=== PATIENT | male | born 1975 | race Caucasian/White ===

== ENCOUNTER → 2016-08-14 | Outpatient (CLI) | payer BC ==
[~2016-08-14] MED LIST: ACET325T96 PO; ADEK PO; ADVIN50/60 INH; AMT24 PO; CETI10TA84 PO; DORN1SOL INH; HYPERTONIC SALINE INH; IBUP-1050 PO; NXM/40 PO; OMAL150S; PANC6000 PO; PEGSOL6 PO; PEGSOL8 PO; SNG10 PO; TOBR1NEB INH; VEST; VNTHFA/IN INH; ZTHM250 PO; [UNRECOGNIZED DRUG - CODE] PO; [UNRECOGNIZED DRUG - OTHER] PO; [UNRECOGNIZED DRUG - SUPPLY] TOP
[2016-08-14 18:57] LABS: BASO % 0.4 %; BASO ABS # 0.03 K/uL (0-0.2); COMPLETE YES; EOS % 4.2 %; HEMATOCRIT 41.2 % (42-52); IG% 0.1 %; LYMPH % 23.3 %; LYMPH ABS # 1.88 K/uL (1.2-3.4); MEAN CELL VOLUME 82.6 fL (80-100); MEAN CORPUSCULAR HEMOGLOBIN 29.5 pg (25-34); MEAN CORPUSCULAR HGB CONC 35.7 g/dl (32-36); MEAN PLATELET VOLUME 10.4 fL (7.4-10.4); MONO % 9.4 %; NEUT % 62.6 %; PLATELET COUNT 362 K/uL (130-400); RED BLOOD COUNT 4.99 M/uL (4.7-6.1); URINE APPEARANCE CLEAR (CLEAR); URINE BILIRUBIN NEG (NEG); URINE COLOR YELLOW; URINE NITRITE NEG (NEG); URINE PH 6.5 (4.5-7.5); URINE SPECIFIC GRAVITY 1.009 (1.000-1.030); UROBILINOGEN NEG (NEG); WHITE BLOOD COUNT 8.07 K/uL (4.8-10.8)
[2016-08-14 18:58] LABS: MANUAL MICROSCOPIC REQUIRED? NO; REVIEW REQ? NO
[2016-08-14 19:09] LABS: PARTIAL THROMBOPLASTIN RATIO 1.1; PROTHROMBIN TIME (PATIENT) 10.7 SECONDS (9.0-12.0)
[2016-08-14 19:18] LABS: ALT/SGPT 16 U/L (12-78); BLOOD UREA NITROGEN 12 mg/dl (7-18); C-REACTIVE PROTEIN 1.55 mg/dl (0-0.29); CALCIUM 8.9 mg/dl (8.5-10.1); CARBON DIOXIDE 25 mmol/L (21-32); CHLORIDE 105 mmol/L (98-107); CHOLESTEROL 113 mg/dl (0-200); CREATININE 0.86 mg/dl (0.60-1.40); GLUCOSE 69 mg/dl (70-99); POTASSIUM 3.9 mmol/L (3.5-5.1); SODIUM 140 mmol/L (136-145); TRIGLYCERIDES 115 mg/dl (0-150); VERY LOW DENSITY LIPOPROT CALC 23 mg/dl
[2016-08-14 19:23] LABS: ALKALINE PHOSPHATASE 77 U/L (45-117); AST/SGOT 11 U/L (15-37); CHOLESTEROL/HDL RATIO 2.9; FERRITIN 29.5 ng/ml (8.0-388.0); HDL CHOLESTEROL 39 mg/dl; LDL CHOLESTEROL CALCULATED 51 mg/dl; PHOSPHORUS 2.9 mg/dl (2.5-4.9); TOTAL IRON BINDING CAPACITY 404 mcg/dl (250-450)
[2016-08-15 06:04] LABS: ESTIMATED AVERAGE GLUCOSE 114 mg/dl; HA1C FLAG Normal (Normal)
[2016-08-27 18:27] LABS: ASPERGILLUS FLAVUS Negative (Negative); ASPERGILLUS FUMIGATUS Negative (Negative); ASPERGILLUS NIGER Negative (Negative); IMMUNOGLOBULIN E TC 24620E 2192 KU/L (<115); VIT E ALPHA-TOCOPHEROL 8.7 mg/L (5.7-19.9); VIT E BETA&GAMMA-TOCOPHEROL <1.0 mg/L (<=4.3); VITAMIN A** TC 921X 45 mcg/dL (38-98)
== END | disposition home or self-care (01) ==
LOC: C.LAB 15:52
PROVIDERS: ATTEND Internal Medicine Pulmonary Disease
DX: E84.9 Cystic fibrosis, unspecified (principal); K86.89 Other specified diseases of pancreas

== ENCOUNTER → 2016-08-19 | Outpatient (CLI) | payer BC | END | disposition home or self-care (01) | LOC: C.LAB 09:03 | PROVIDERS: ATTEND Internal Medicine Pulmonary Disease | DX: E84.0 Cystic fibrosis with pulmonary manifestations (principal); K86.89 Other specified diseases of pancreas ==

== ENCOUNTER → 2016-08-31 | Outpatient (CLI) | payer BC ==
--- NOTE | 2016-08-31 15:57 | DIAGNOSTIC IMAGING REPORT ---
CT SCAN OF THE ABDOMEN AND PELVIS WITHOUT IV CONTRAST CLINICAL HISTORY: Cystic fibrosis. Meconium obstruction. COMPARISON STUDY: Abdominal CT dated 04/26/2015. TECHNIQUE: CT scan of the abdomen and pelvis is performed from the lung bases to the proximal femora. Images are reviewed in the axial, sagittal, and coronal planes. IV contrast was not administered for this examination as per the referring clinician. Note that the examination is suboptimal without oral and IV contrast. Automated dose control exposure was utilized. CT DOSE: 553.83 mGy.cm FINDINGS: Lung bases: The heart is normal in size and without pericardial effusion. The lungs appear hyperinflated, and there is patchy nodularity with mucous plugging seen at the right lung base. No pleural effusion is identified. Liver: The unenhanced liver is normal in size, contour, and attenuation. There is no intrahepatic biliary ductal dilatation. Gallbladder: The gallbladder is contracted. Small calcified gallstones are identified. Spleen: Normal in size and attenuation. Pancreas: There is complete fatty replacement of the pancreas. Adrenal glands: Unremarkable. Kidneys: The unenhanced kidneys are normal in size and without hydronephrosis. There is a single nonobstructing right renal calculus and 3 nonobstructing left renal calculi. These measure up to 2 mm. There is no evidence of contour deforming renal mass lesion. Abdominal vasculature: The abdominal aorta is normal in course and caliber. Bowel: The small bowel and colon are normal in course and caliber. There is moderate colonic fecal retention. The appendix is surgically absent. Peritoneum: There is no intraperitoneal free air or abdominal ascites. There is a small fat-containing umbilical hernia. Lymphadenopathy: None. Pelvic viscera: The bladder, prostate, and seminal vesicles are normal as visualized. Skeletal structures: No lytic or blastic lesions are seen. IMPRESSION: 1. There are no acute infectious or inflammatory findings in the abdomen or pelvis. 2. There is near complete fatty atrophy of the pancreas, consistent with the reported history of cystic fibrosis. 3. Cholelithiasis. 4. There are small bilateral nonobstructing renal calculi. 5. Moderate constipation. 6. Nodular opacities are present at the right lung base. This may reflect an infectious/inflammatory pneumonitis. See report of chest CT performed concurrently for detailed intrathoracic findings. Electronically signed by: Desean Mcintosh M.D. 08/31/2016 3:56 PM Dictated Date/Time: 08/31/2016 3:50 PM
--- NOTE | 2016-08-31 16:01 | DIAGNOSTIC IMAGING REPORT ---
CHEST CT WITHOUT CONTRAST CT DOSE: HISTORY: CYSTIC FIBROSIS TECHNIQUE: Multiaxial CT images of the chest were performed without contrast. COMPARISON: Chest CT 09/15/2015. FINDINGS: The central airways are essentially patent. There is mild bronchiectasis. There are few small biapical bulla within largest on the right measuring 2.5 cm. Multiple scattered opacified distal bronchi with scattered lobular and irregular airspace opacities. This includes an irregular cavitary focus within the right lower lobe on image 182 which measures 2 cm. This is similar to the prior study. There are few new irregular airspace opacities within the right lower lobe. However, the overall appearance of the chest demonstrates improvement in the airspace opacities. The tree-in-bud nodular opacities have also improved. No pleural effusions. No pneumothorax. Mild diffuse bronchial wall thickening. No mediastinal lymphadenopathy. Normal caliber thoracic aorta. The heart is normal in size. Complete fatty replacement of the pancreas. Small gallstones. IMPRESSION: 1. Mild bronchiectasis with multiple scattered opacified distal bronchi. There are a few scattered lobular and irregular airspace opacities with tree-in-bud nodular opacities. These findings are consistent with the patient's history of cystic fibrosis. Overall, the airspace opacities have slightly improved in the interval. 2. Persistent 2 cm cavitary focus within the right lower lobe. Continued follow-up is recommended to ensure stability. Electronically signed by: Wilian Lozano M.D. 08/31/2016 3:59 PM Dictated Date/Time: 08/31/2016 3:46 PM
== END | disposition home or self-care (01) ==
LOC: C.CTS 15:20
PROVIDERS: ATTEND Internal Medicine Pulmonary Disease
DX: E84.0 Cystic fibrosis with pulmonary manifestations (principal); E00-E89 Endocrine, nutritional and metabolic diseases; K86.89 Other specified diseases of pancreas; M35.1 Other overlap syndromes; M06.9 Rheumatoid arthritis, unspecified; K59.00 Constipation, unspecified

== ENCOUNTER → 2017-04-17 | Day surgery (SDC) | payer BC ==
[2017-04-02 14:13] VITALS: BMI 22.0
[~2017-04-17] VITALS: Ht 180.3 cm; Wt 72.7 kg
[~2017-04-17] MED LIST changes: +LIDOCAINE HCL 2% 2 ML VIAL (20MG/ML) ONE; -PEGSOL8 PO; +PROPOFOL IV EMULSION 10 MG/ML 20 ML VIAL IV ONE; -VEST; -[UNRECOGNIZED DRUG - OTHER] PO
[2017-04-17 11:17] VITALS: Ht 180.3 cm; Wt 72.7 kg
--- NOTE | 2017-04-17 11:20 | Endo History and Physical ---
History & Physical Date of Service: Apr 17, 2017. Chief Complaint: History of colon polyps Referring Physician: Dr. Wall History of Present Illness 41 yo CM who presents for colonoscopy secondary to history of colon polyps. Past Medical History Asthma, Reflux, Other Past Surgical History Hx Cardiac Surgery: No Hx Internal Defibrillator: No Hx Pacemaker: No Hx Abdominal Surgery: Yes (APPY, INGUINAL HERNIA REPAIR WITH MESH) Hx of Implantable Prosthesis: No Hx Post-Op Nausea and Vomiting: No Hx Cancer Surgery: No Hx Thoracic Surgery: Yes (BRONCHOSCOPY) Hx Orthopedic: No Hx Urinary Tract Surgery: No Family History None Social History Smoking Status: Never Smoker Hx Substance Use: No Hx Alcohol Use: Yes (1 DRINK/WEEK) Allergies Coded Allergies: No Known Allergies (Verified , 04/02/17) Current Medications Reported Home Medications Medications Dose Route/Sig Max Daily Dose Days Date Category Dose Instructions [Vibrating Vest] TOP UD PRN 04/02/17 Reported Ventolin Hfa (Albuterol) 200 Puffs/03358 Mcg Aers 2-4 Puffs INH Q6H PRN 04/02/17 Reported Orkambi 200-125 mg (Lumacaftor-Ivacaftor) 1 Tab Tab 2 Tabs PO BID 04/02/17 Reported Golytely (Peg 1118-Tur-Ibm Bicarb-Sod Ch) 1 Janell Janell 1 Dose PO UD PRN 04/02/17 Reported Amitiza (Lubiprostone) 24 Mcg Cap 24 Mcg PO QAM 04/02/17 Reported Xolair (Omalizumab) 150 Mg Janell 04/06/15 Reported INJECT 375MG SUBQ EVERY 2 WEEKS Advair Diskus 500/50 60 Dose (Fluticasone Prop/Salmeterol) 1 Ea Aerp 1 Puffs INH BID 04/06/15 Reported Advil (Ibuprofen) 200 Mg Tab 200 Mg PO Q4 PRN 03/21/15 Reported Tylenol (Acetaminophen) 325 Mg Tab 325 Mg PO DAILY PRN 03/21/15 Reported [Hypertonic Saline] INH BID 12/21/14 Reported USE IN NEB TREATMENT DIRECTED Pulmozyme (Dornase Praveen) 1 Mg/Ml Janell 1 Mg INH QAM 12/21/14 Reported Tobramycin 300 Mg/5 Ml Neb 300 Mg INH BID 12/21/14 Reported DIRECTED ON 28 DAYS OFF 28 DAYS [Adek] 1 Tab PO BID 12/21/14 Reported Montelukast Sodium (Montelukast Sod) 10 Mg Tab 10 Mg PO QAM 12/21/14 Reported Zyrtec (Cetirizine HCl) 10 Mg Tab 10 Mg PO QAM 12/21/14 Reported Azithromycin 250 Mg Tab 250 Mg PO QAM 12/21/14 Reported Nexium (Esomeprazole Magnesium) 40 Mg Capcr 40 Mg PO QAM 12/21/14 Reported Creon (Pancrelipase (Lipase-Protease-) 1 Cap Cap 8 Cap PO TIDM 12/21/14 Reported 4 CAPS WITH SNACK Vital Signs Weight (Kilograms): 72.73 Height (Feet): 5 Height (Inches): 11 Date Time Temp Pulse Resp B/P (MAP) Pulse Ox O2 Delivery O2 Flow Rate FiO2 04/17/17 11:16 36.7 78 18 141/74 (96) 97 Room Air Physical Exam General Appearance: WD/WN, no apparent distress Respiratory/Chest: Auscultation: breath sounds normal Cardiovascular: Heart Auscultation: RRR Abdomen: Bowel Sounds: normal Inspection & Palpation: soft, non-distended, no tenderness, guarding & rebound Assessment and Plan Assessment: 41 yo CM who presents for colonoscopy secondary to history of colon polyps. Plan: Proceed with colonoscopy.
--- NOTE | 2017-04-17 11:58 | Discharge Instructions ---
Endoscopy Patient Instructions Date / Procedure(s) Performed Apr 17, 2017. Colonoscopy Allergy Information Coded Allergies: No Known Allergies (Verified , 04/02/17) Discharge Date / Findings Apr 17, 2017. Colon polyps Internal hemorrhoids Medication Instructions OK to resume all medications today as prescribed Reported Home Medications Medications Dose Route/Sig Max Daily Dose Days Date Category Dose Instructions [Vibrating Vest] TOP UD PRN 04/02/17 Reported Ventolin Hfa (Albuterol) 200 Puffs/98890 Mcg Aers 2-4 Puffs INH Q6H PRN 04/02/17 Reported Orkambi 200-125 mg (Lumacaftor-Ivacaftor) 1 Tab Tab 2 Tabs PO BID 04/02/17 Reported Golytely (Peg 3033-Ovg-Ojc Bicarb-Sod Ch) 1 Janell Janell 1 Dose PO UD PRN 04/02/17 Reported Amitiza (Lubiprostone) 24 Mcg Cap 24 Mcg PO QAM 04/02/17 Reported Xolair (Omalizumab) 150 Mg Janell 04/06/15 Reported INJECT 375MG SUBQ EVERY 2 WEEKS Advair Diskus 500/50 60 Dose (Fluticasone Prop/Salmeterol) 1 Ea Aerp 1 Puffs INH BID 04/06/15 Reported Advil (Ibuprofen) 200 Mg Tab 200 Mg PO Q4 PRN 03/21/15 Reported Tylenol (Acetaminophen) 325 Mg Tab 325 Mg PO DAILY PRN 03/21/15 Reported [Hypertonic Saline] INH BID 12/21/14 Reported USE IN NEB TREATMENT DIRECTED Pulmozyme (Dornase Praveen) 1 Mg/Ml Janell 1 Mg INH QAM 12/21/14 Reported Tobramycin 300 Mg/5 Ml Neb 300 Mg INH BID 12/21/14 Reported DIRECTED ON 28 DAYS OFF 28 DAYS [Adek] 1 Tab PO BID 12/21/14 Reported Montelukast Sodium (Montelukast Sod) 10 Mg Tab 10 Mg PO QAM 12/21/14 Reported Zyrtec (Cetirizine HCl) 10 Mg Tab 10 Mg PO QAM 12/21/14 Reported Azithromycin 250 Mg Tab 250 Mg PO QAM 12/21/14 Reported Nexium (Esomeprazole Magnesium) 40 Mg Capcr 40 Mg PO QAM 12/21/14 Reported Creon (Pancrelipase (Lipase-Protease-) 1 Cap Cap 8 Cap PO TIDM 12/21/14 Reported 4 CAPS WITH SNACK Provider Instructions Activity Restrictions - No exercising or heavy lifting for 24 hours. - Do not drink alcohol the day of the procedure. - Do not drive a car or operate machinery until the day after the procedure. - Do not make any important decisions or sign important papers in 24 hours after the procedure. Following Day: - Return to full activity which may include returning to work/school. Diet Start your diet with liquids and light foods (jello, soup, juice, toast). Then eat your usual diet if not nauseated. Treatment For Common After Affects For mild abdominal pain, bloating, or excessive gas: - Rest - Eat lightly - Lie on right side Follow-Up Information Follow-up with DR GALLAGHER as scheduled Anesthesia Information What You Should Know You have had a procedure that required some medicine to reduce anxiety and discomfort. This treatment is called moderate sedation. After receiving the treatment, you may be sleepy, but you will be able to breathe on your own. The effects of the treatment may last for several hours. Follow these instructions along with Activity/Diet recommendations noted above: * Do NOT do anything where dizziness or clumsiness would be dangerous. * Rest quietly at home today, then you can be up and about tomorrow. * Have a responsible person stay with you the rest of today. * You may have had an I.V. today. If so, you may take the dressing off later today. Recommendations Call your doctor if: * Trouble breathing * Continuous vomiting for more than 24 hours * Temperature above 101 degrees * Severe abdominal pain or bloating * Pain not relieved by pain medicine ordered * There is increased drainage or redness from any incision * A large amount of rectal bleeding greater than 2-3 tablespoons. (If you had a polyp/s removed or have hemorrhoids, a small amount of blood - from the rectum is to be expected.) * You have any unanswered questions or concerns. IN THE EVENT OF A SERIOUS EMERGENCY, GO TO THE NEAREST EMERGENCY ROOM Your discharge instructions were prepared by provider Aleks Cox. Patient Instructions Signature Page Adryan Wells Patient (or Guardian) Signature/Date: I have read and understand the instructions given to me by my caregivers. Caregiver/RN/Doctor Signature/Date: The above-named patient and/or guardian has received patient instructions on this date. + Original Patient Signature Page (only) stays with chart. Please make copy for patient.
--- NOTE | 2017-04-17 12:07 | GI REPORT ---
Procedure Date: 04/17/2017 11:09 AM Procedure: Colonoscopy Indications: High risk colon cancer surveillance: Personal history of colonic polyps, Last colonoscopy: December 2014 Medicines: Monitored Anesthesia Care Complications: No immediate complications. Estimated Blood Loss: Estimated blood loss: none. Procedure: Pre-Anesthesia Assessment: - Prior to the procedure, a History and Physical was performed, and patient medications and allergies were reviewed. The patient's tolerance of previous anesthesia was also reviewed. The risks and benefits of the procedure and the sedation options and risks were discussed with the patient. All questions were answered, and informed consent was obtained. Prior Anticoagulants: The patient has taken no previous anticoagulant or antiplatelet agents. ASA Grade Assessment: III - A patient with severe systemic disease. After reviewing the risks and benefits, the patient was deemed in satisfactory condition to undergo the procedure. After I obtained informed consent, the scope was passed under direct vision. Throughout the procedure, the patient's blood pressure, pulse, and oxygen saturations were monitored continuously. The scope was introduced through the anus and advanced to the terminal ileum. The colonoscopy was performed without difficulty. The patient tolerated the procedure well. The quality of the bowel preparation was good. The terminal ileum, ileocecal valve, appendiceal orifice, and rectum were photographed. Findings: Two sessile polyps were found in the sigmoid colon and in the descending colon. The polyps were 5 to 8 mm in size. These polyps were removed with a hot snare. Resection and retrieval were complete. Non-bleeding internal hemorrhoids were found during retroflexion. The hemorrhoids were small. Impression: - Two 5 to 8 mm polyps in the sigmoid colon and in the descending colon, removed with a hot snare. Resected and retrieved. - Non-bleeding internal hemorrhoids. Recommendation: - Resume previous diet. - Continue present medications. - Repeat colonoscopy for surveillance based on pathology results. - Return to primary care physician as previously scheduled. Aleks Cox, 04/17/2017 12:07:08 PM This report has been signed electronically. Note Initiated On: 04/17/2017 11:09 AM I attest to the content of the Intraoperative Record and orders documented therein, exceptions below
--- NOTE | 2017-04-17 12:14 | Anesthesiology Progress Note ---
Anesthesia Post Op Note Date & Time Apr 17, 2017 at 12:13 Vital Signs Pain Intensity: 2 Vital Signs Past 12 Hours Date Time Temp Pulse Resp B/P (MAP) Pulse Ox O2 Delivery O2 Flow Rate FiO2 04/17/17 12:10 72 16 121/76 (91) 97 Room Air 04/17/17 12:00 77 16 115/65 (82) 97 Room Air 04/17/17 11:16 36.7 78 18 141/74 (96) 97 Room Air Notes Mental Status: alert / awake / arousable, participated in evaluation Pt Amnestic to Procedure: Yes Nausea / Vomiting: adequately controlled Pain: adequately controlled Airway Patency, RR, SpO2: stable & adequate BP & HR: stable & adequate Hydration State: stable & adequate Anesthetic Complications: no major complications apparent
[2017-04-17 12:20] VITALS: BP 117/76; PULSE 64; O2SAT 96
== END | disposition home or self-care (01) ==
LOC: C.GI 10:53
PROVIDERS: ATTEND Internal Medicine
DX: Z12.11 Encounter for screening for malignant neoplasm of colon (principal); D12.4 Benign neoplasm of descending colon; D12.5 Benign neoplasm of sigmoid colon; K64.8 Other hemorrhoids; Z86.010 Personal history of colon polyps; K21.9 Gastro-esophageal reflux disease without esophagitis; J45.909 Unspecified asthma, uncomplicated; Z79.899 Other long term (current) drug therapy

== ENCOUNTER → 2017-08-14 | Outpatient (CLI) | payer BC ==
[~2017-08-14] MED LIST changes: +AZIT-57 PO; -LIDOCAINE HCL 2% 2 ML VIAL (20MG/ML) ONE; -PROPOFOL IV EMULSION 10 MG/ML 20 ML VIAL IV ONE; -ZTHM250 PO
[2017-08-14 16:31] LABS: BASO % 0.3 %; BASO ABS # 0.04 K/uL (0-0.2); EOS % 2.6 %; EOS ABS # 0.39 K/uL (0-0.5); HEMATOCRIT 45.6 % (42-52); HEMOGLOBIN 15.8 g/dL (14.0-18.0); IG# 0.03 K/uL (0.00-0.02); LYMPH % 13.4 %; LYMPH ABS # 2.03 K/uL (1.2-3.4); MEAN CELL VOLUME 85.4 fL (80-100); MEAN CORPUSCULAR HEMOGLOBIN 29.6 pg (25-34); MEAN CORPUSCULAR HGB CONC 34.6 g/dl (32-36); MEAN PLATELET VOLUME 10.2 fL (7.4-10.4); MONO % 8.3 %; MONO ABS # 1.25 K/uL (0.11-0.59); NEUT % 75.2 %; NEUT ABS # 11.37 K/uL (1.4-6.5); NUCLEATED RED BLOOD CELL ABS 0.02 K/uL (0-0); PLATELET COUNT 385 K/uL (130-400); RED CELL DISTRIBUTION WIDTH CV 13.3 % (11.5-14.5); RED CELL DISTRIBUTION WIDTH SD 41.2 fL (36.4-46.3); WHITE BLOOD COUNT 15.11 K/uL (4.8-10.8)
[2017-08-14 16:40] LABS: PTT PATIENT 27.6 SECONDS (21.0-31.0)
[2017-08-14 16:57] LABS: ALBUMIN 4.2 gm/dl (3.4-5.0); ALT/SGPT 20 U/L (12-78); AST/SGOT 14 U/L (15-37); BLOOD UREA NITROGEN 13 mg/dl (7-18); CALCIUM 9.3 mg/dl (8.5-10.1); CARBON DIOXIDE 29 mmol/L (21-32); CREATININE 0.87 mg/dl (0.60-1.40); GLUCOSE 75 mg/dl (70-99); PHOSPHORUS 3.1 mg/dl (2.5-4.9); POTASSIUM 3.9 mmol/L (3.5-5.1); SODIUM 134 mmol/L (136-145)
[2017-08-14 17:00] LABS: ALKALINE PHOSPHATASE 94 U/L (45-117); TOTAL PROTEIN 9.3 gm/dl (6.4-8.2)
[2017-08-15 06:05] LABS: HEMOGLOBIN A1C 5.7 % (4.5-5.6)
== END | disposition home or self-care (01) ==
LOC: C.LAB 15:28
PROVIDERS: ATTEND Internal Medicine Pulmonary Disease
DX: E84.0 Cystic fibrosis with pulmonary manifestations (principal); K86.89 Other specified diseases of pancreas

== ENCOUNTER → 2017-08-15 | Outpatient (CLI) | payer BC ==
--- NOTE | 2017-08-15 16:04 | DIAGNOSTIC IMAGING REPORT ---
CHEST 2 VIEWS ROUTINE HISTORY: CYSITIC FIBROSIS, PANCREATIC INSUFFICIENCY COMPARISON: Chest CT 08/31/2016. FINDINGS: The lungs remain hyperexpanded. No pneumothorax. No pleural effusions. The heart is normal in size. Bronchiectasis and perihilar interstitial thickening persists. Scattered nodular densities are also similar to the prior study. This favors impacted bronchi. Dominant nodule within the right midlung zone measures 2 cm. IMPRESSION: No significant change in the bronchiectasis, perihilar interstitial thickening, and scattered nodular densities. This likely represents chronic inflammatory/infectious change related to the patient's history of cystic fibrosis. Dominant nodule within the right midlung zone measures 2 cm. Recommend follow-up to ensure resolution. Electronically signed by: Wilian Lozano M.D. 08/15/2017 4:02 PM Dictated Date/Time: 08/15/2017 3:59 PM
== END | disposition home or self-care (01) ==
LOC: C.RAD 15:40
PROVIDERS: ATTEND Internal Medicine Pulmonary Disease
DX: E84.0 Cystic fibrosis with pulmonary manifestations (principal); K86.89 Other specified diseases of pancreas; J47.9 Bronchiectasis, uncomplicated; R91.1 Solitary pulmonary nodule

== ENCOUNTER → 2017-08-18 | Outpatient (CLI) | payer BC ==
[2017-08-22 17:33] LABS: VITAMIN A** TC 921X 42 mcg/dL (38-98)
== END | disposition home or self-care (01) ==
LOC: C.LAB 07:07
PROVIDERS: ATTEND Internal Medicine Pulmonary Disease
DX: E84.0 Cystic fibrosis with pulmonary manifestations (principal); K86.89 Other specified diseases of pancreas

== ENCOUNTER → 2017-09-02 | Outpatient (CLI) | payer BC ==
[~2017-09-02] MED LIST changes: +ACET-1693 PO; -ACET325T96 PO
[2017-09-02 18:12] LABS: HEMATOCRIT 40.1 % (42-52); MEAN CELL VOLUME 85.5 fL (80-100); MEAN CORPUSCULAR HEMOGLOBIN 29.9 pg (25-34); MEAN CORPUSCULAR HGB CONC 34.9 g/dl (32-36); MEAN PLATELET VOLUME 9.8 fL (7.4-10.4); PLATELET COUNT 325 K/uL (130-400); RED CELL DISTRIBUTION WIDTH CV 13.6 % (11.5-14.5); RED CELL DISTRIBUTION WIDTH SD 42.1 fL (36.4-46.3)
[2017-09-02 18:42] LABS: ALBUMIN 3.6 gm/dl (3.4-5.0); ALT/SGPT 16 U/L (12-78); BLOOD UREA NITROGEN 8 mg/dl (7-18); CARBON DIOXIDE 28 mmol/L (21-32); CREATININE 0.82 mg/dl (0.60-1.40); GLUCOSE 138 mg/dl (70-99); POTASSIUM 3.5 mmol/L (3.5-5.1); SODIUM 139 mmol/L (136-145)
[2017-09-02 18:45] LABS: ALKALINE PHOSPHATASE 74 U/L (45-117); AST/SGOT 9 U/L (15-37); TOTAL PROTEIN 7.8 gm/dl (6.4-8.2)
== END | disposition home or self-care (01) ==
LOC: C.LABSPEC 17:30
PROVIDERS: ATTEND Internal Medicine Pulmonary Disease
DX: E84.9 Cystic fibrosis, unspecified (principal)

== ENCOUNTER → 2017-09-02 | Outpatient (CLI) | payer BC | LOC: C.LABSPEC 12:48 | PROVIDERS: ATTEND Internal Medicine Pulmonary Disease | DX: E84.9 Cystic fibrosis, unspecified (principal) ==

== ENCOUNTER → 2017-09-10 | Outpatient (CLI) | payer BC | END | disposition home or self-care (01) | LOC: C.MAMM 14:49 | PROVIDERS: ATTEND Internal Medicine Pulmonary Disease | DX: M85.88 Other specified disorders of bone density and structure, other site (principal); M85.852 Other specified disorders of bone density and structure, left thigh; E84.9 Cystic fibrosis, unspecified; K86.89 Other specified diseases of pancreas ==

== ENCOUNTER → 2017-09-10 | Outpatient (CLI) | payer BC ==
[2017-09-10 17:57] LABS: HEMATOCRIT 43.6 % (42-52); HEMOGLOBIN 15.5 g/dL (14.0-18.0); MEAN CORPUSCULAR HEMOGLOBIN 29.9 pg (25-34); MEAN CORPUSCULAR HGB CONC 35.6 g/dl (32-36); MEAN PLATELET VOLUME 10.5 fL (7.4-10.4); PLATELET COUNT 262 K/uL (130-400); RED CELL DISTRIBUTION WIDTH CV 13.4 % (11.5-14.5); RED CELL DISTRIBUTION WIDTH SD 40.1 fL (36.4-46.3); WHITE BLOOD COUNT 9.48 K/uL (4.8-10.8)
[2017-09-10 18:17] LABS: ALT/SGPT 22 U/L (12-78); BLOOD UREA NITROGEN 16 mg/dl (7-18); CARBON DIOXIDE 29 mmol/L (21-32); CREATININE 0.95 mg/dl (0.60-1.40); GLUCOSE 103 mg/dl (70-99); POTASSIUM 4.2 mmol/L (3.5-5.1); SODIUM 136 mmol/L (136-145)
[2017-09-10 18:20] LABS: ALKALINE PHOSPHATASE 93 U/L (45-117); AST/SGOT 11 U/L (15-37); TOTAL PROTEIN 8.5 gm/dl (6.4-8.2)
== END | disposition home or self-care (01) ==
LOC: C.LABSPEC 11:33
PROVIDERS: ATTEND Internal Medicine Pulmonary Disease
DX: E84.0 Cystic fibrosis with pulmonary manifestations (principal)

== ENCOUNTER → 2017-09-14 | Outpatient (CLI) | payer BC ==
[2017-09-14 16:41] LABS: BASO % 0.3 %; BASO ABS # 0.03 K/uL (0-0.2); EOS % 0.8 %; EOS ABS # 0.08 K/uL (0-0.5); HEMATOCRIT 41.7 % (42-52); HEMOGLOBIN 14.5 g/dL (14.0-18.0); IG# 0.03 K/uL (0.00-0.02); LYMPH % 13.9 %; LYMPH ABS # 1.46 K/uL (1.2-3.4); MEAN CELL VOLUME 84.1 fL (80-100); MEAN CORPUSCULAR HEMOGLOBIN 29.2 pg (25-34); MEAN CORPUSCULAR HGB CONC 34.8 g/dl (32-36); MEAN PLATELET VOLUME 10.3 fL (7.4-10.4); MONO ABS # 0.63 K/uL (0.11-0.59); NEUT % 78.7 %; NEUT ABS # 8.24 K/uL (1.4-6.5); PLATELET COUNT 320 K/uL (130-400); RED CELL DISTRIBUTION WIDTH CV 13.4 % (11.5-14.5); RED CELL DISTRIBUTION WIDTH SD 40.7 fL (36.4-46.3); WHITE BLOOD COUNT 10.47 K/uL (4.8-10.8)
== END | disposition home or self-care (01) ==
LOC: C.LAB 16:05
PROVIDERS: ATTEND Internal Medicine Pulmonary Disease
DX: E84.0 Cystic fibrosis with pulmonary manifestations (principal)

== ENCOUNTER → 2017-11-07 | Outpatient (CLI) | payer BC ==
[~2017-11-07] MED LIST changes: +OPTIRAY 320 IV PRN
--- NOTE | 2017-11-07 16:57 | DIAGNOSTIC IMAGING REPORT ---
CT ABD/PELVIS IV AND ORAL CONT CLINICAL HISTORY: M54.5 Low back pain R10.9 Abdominal pain K80.20 Cholelithiasis COMPARISON STUDY: August 31, 2016 TECHNIQUE: Following the IV administration of 93 mL of Optiray-320, CT scan of the abdomen and pelvis was performed from the lung bases to the proximal femurs. Images are reviewed in the axial, sagittal, and coronal planes. IV contrast was administered without complication. A dose lowering technique was utilized adhering to the principles of ALARA. CT DOSE: 393.47 mGycm FINDINGS: Lower chest: There are areas of lower lung zone atelectasis and mucous plugging consistent with the clinical history of cystic fibrosis. Liver: No focal hepatic masses are visualized. There is very minimal ductal prominence. Gallbladder: Contracted Spleen: Normal in size and attenuation. Pancreas: There is severe fatty atrophy of the pancreas Adrenal glands: Unremarkable. Kidneys: There are punctate nonobstructing left renal calculi. There is no hydronephrosis. No renal masses are visualized. Bowel: There are no transition zones to indicate bowel obstruction. There is no evidence of acute diverticulitis. By history the appendix is surgically absent. There is a small bowel feces sign. This would suggest a motility disorder. Peritoneum: There is no intraperitoneal free air or abdominal ascites. Vasculature: The abdominal aorta is normal in course and caliber. Adenopathy: None. Pelvic viscera: The bladder, and pelvic viscera are unremarkable. Skeletal structures: No destructive osseous lesions are seen. IMPRESSION: 1. Complete fatty replacement of the pancreas 2. Changes of the lung bases consistent with cystic fibrosis 3. Nonobstructing left renal calculi. No evidence of hydronephrosis 4. No evidence of bowel obstruction. No evidence of free air 5. Fecal retention. Small bowel feces sign suggesting a motility disorder Electronically signed by: Domenic Do M.D. 11/07/2017 4:55 PM Dictated Date/Time: 11/07/2017 4:48 PM
== END | disposition home or self-care (01) ==
LOC: C.CTS 14:25
PROVIDERS: ATTEND Physician Assistant
DX: K80.20 Calculus of gallbladder without cholecystitis without obstruction (principal); M54.5 Low back pain; R10.9 Unspecified abdominal pain; N20.0 Calculus of kidney; K59.00 Constipation, unspecified

== ENCOUNTER 2023-01-15 08:26 | Observation (INO) ==
[2023-01-15 09:27] LABS: Basophils # (auto) 0.04 K/uL (0-0.2); Basophils % (auto) 0.5 %; Eosinophils # (auto) 0.24 K/uL (0-0.50); Eosinophils % (auto) 3.2 %; Hematocrit (blood only) 42.9 % (42.0-52.0); Hemoglobin 15.5 g/dl (14.0-18.0); Immature Granulocytes # (auto) 0.01 K/uL (0.01-0.20); Immature Granulocytes % (auto) 0.1 %; Lymphocytes # (auto) 1.77 K/uL (1.2-3.4); Lymphocytes % (auto) 23.3 %; Mean Corpuscular Hemoglobin 30.8 pg (25.0-34.0); Mean Corpuscular Hgb Conc 36.1 g/dL (32.0-36.0); Mean Corpuscular Volume 85.1 fL (80.0-100.0); Mean Platelet Volume 10.1 fL (9.4-12.4); Monocytes # (auto) 0.82 K/uL (0.11-0.59); Monocytes % (auto) 10.8 %; Neutrophils # (auto) 4.72 K/uL (1.40-6.50); Neutrophils % (auto) 62.1 %; Platelet Count 264 K/uL (130-400); RDW Coefficient of Variation 13.3 % (11.5-14.5); RDW Standard Deviation 40.9 fL (36.4-46.3); Red Blood Count 5.04 M/uL (4.70-6.10)
[2023-01-15 09:31] LABS: Albumin Globulin Ratio 1.4 (0.9-2); Albumin Level 4.4 gm/dl (3.4-5.0); BUN Creatinine Ratio 20.7 (10-20); Bilirubin,Total 0.7 mg/dl (0.2-1.0); Calcium 9.6 mg/dl (8.6-10.3); Creatinine Clr Calc Pharmacy 116.4 ml/min; Est GFR (Non-African American) 103.5 ml/min; Globulin 3.1 gm/dl (2.5-4.0); Potassium 4.6 mmol/L (3.5-5.1); Total Protein 7.5 gm/dl (6.0-8.3)
[2023-01-15] MEDS ORDERED: CEFEPIME 2,000 MG/20 ML VIAL IV STA (09:40)
[2023-01-15 09:44] LABS: Partial Thromboplastin Time 27.1 Seconds (21.0-31.0)
[2023-01-15] MEDS: SODIUM CHLORIDE 0.9% 1000ML 1,000 ML IV SCH ×2 (09:45→18:38)
[2023-01-15] MEDS ORDERED: OPTIRAY 320 125ml IV ONE (10:00)
--- NOTE | 2023-01-15 10:46 | CT Scan Report ---
CT angio chest PE protocol CLINICAL HISTORY: hemoptysis, CF patient TECHNIQUE: Multidetector row helical CT of the chest was performed with angiographic protocol. Baker l and sagittal reformations were obtained. Coronal and sagittal MIPS were obtained from the axial amie a set and were submitted for review. Automated dose lowering techniques and/or adjustment according to patient size were utilized for this exam. Comparison: Comparison is made to CT chest 08/31/2016 FINDINGS: Lungs and pleura: Extensive bronchiectasis, scarring, and cystic changes are seen favoring the upper lobes. Regions of hyperinflation are seen. A few nodular densities are seen most prominently a 10 mm nodule in the right lower lobe (series 5 image 58) decreased from prior exam where it measured 15 mm. Heart and pericardium: Heart size is normal. No pericardial effusion. Vessels: No evidence of pulmonary embolism. Mediastinum and patricia: Unremarkable. Chest wall and lower neck: Unremarkable. Abdomen: Unremarkable. Bones: Unremarkable. IMPRESSION: No evidence of pulmonary embolus. Chronic findings of cystic fibrosis with bronchiectasis, cystic savannah nges, and infectious/inflammatory nodules which have improved from prior exam. ACT 112: Negative or not required by law. Electronically signed by: Tino Kraus M.D. 01/15/2023 10:45 AM
--- NOTE | 2023-01-15 11:19 | Emergency Department Note ---
Impression & Plan Hemoptysis, Cystic fibrosis ED Provider Note ED Provider Note NAME: JASKARAN BOATENG Jr AGE:47 SEX: Male : 1975 ARRIVES VIA: private vehicle INFORMANT: Patient ED PROVIDER(s): Usha Luna DO CHIEF COMPLAINT: Hemoptysis HPI: This is a 47-year-old male presents emergency room due to concern for hemoptysis which woke him up in the middle the night. Patient states he saw gross blood when he coughed. No recent worsening cough or change in his sputum. No recent illness, fever/chills, or CF exacerbation. Patient denies any change in his medications and states he has been taking them as prescribed. Patient does follow with a CF park services specialist at [place]. Patient states he has no accompanying sore throat, chest pain, shortness of breath, vomiting, epistaxis, trouble swallowing, or black or bloody stools. PAST MEDICAL HISTORY:See Below PAST SURGICAL HISTORY:See Below FAMILY HISTORY:See Below SOCIAL HISTORY:See Below HOME MEDICATIONS:See Below ALLERGIES:See Below VITALS:See Below PHYSICAL EXAMINATION: GENERAL: alert, well appearing, well nourished, no distress, non-toxic EYE EXAM: normal conjunctiva, PERRL and EOM's grossly intact NECK: supple, no nuchal rigidity, no adenopathy, non-tender LUNGS: Clear to auscultation. Normal chest wall mechanics, no w/r/r HEART: no murmurs, S1 normal and S2 normal ABDOMEN: abdomen soft, non-tender, normo-active bowel sounds, no masses, no rebound or guarding. SKIN: no rashes, petechiae, orbruising UPPER EXTREMITIES: upper extremities are grossly normal. FROM, nml pulses b/l. LOWER EXTREMITIES: No pitting edema. FROM, nml pulses b/l. NEURO EXAM: Normal sensorium, cranial nerves II-XII grossly intact, normal speech, no facial droop,nogross weakness of arms, no gross weakness of legs. Gross sensation intact. No ataxia. Vital Signs: reviewed and remarkable Differential Diagnosis: Pneumonia, PE, aspiration, bronchitis, pneumothorax, pulmonary hemorrhage, URI, epistaxis, as well as others were considered MEDICAL DECISION MAKING: This is a very well-appearing 47-year-old male presents after he awoke in the middle the night with tato hemoptysis. Patient has CF and follows with a specialist at [place]. Patient states has been compliant with his meds. He was afebrile and vital signs stable. Labs were drawn and sent, IV established, and patient monitored on telemetry. He was sent for CT angiography of the chest. He had already reached out to a specialist who also preferred CT imaging given his history. After labs and CT were resulted I did call and discussed the case with his CF specialist. He made recommendations for antibiotics and observation overnight. This was relayed to the patient who was in agreement w ith the plan. Case discussed with hospitalist team for additional evaluation and management. Patient no recurrent hemoptysis in the department, no accompanying hypoxia or respiratory distress. Consultation(s): 1116: Discussed with Dr. Zach Multani ([phone]) patient's CF specialist/pulmonology at [place]. He recommends patient be observed overnight and given IV cefepime and oral Cipro 750 mg twice daily. He states if he remains well and asymptomatic into tomorrow he could potentially be discharged. He states he does typically give the patient a total of 1 L of fluids per day and otherwise he should stay on his usual home medications. 1225: Discussed with FAUSTINO Guerra, and Dr. Chavez. ER Treatment Provided: See below Diagnostics Interpreted By Me: -ECG: [] -Cardiac Monitoring: An order was placed for continuous cardiac monitoring. The monitor shows a rate of [] with [] rhythm. -Laboratory studies: As stated above and show below. -Imaging studies: [] Triage Nursing Note Reviewed Prior/Outside Records Reviewed Past Med/Surg History Medical History Asthma Bronchiectasis Cystic fibrosis GERD (gastroesophageal reflux disease) History of allergic bronchopulmonary aspergillosis follows with Dr. Christian Rodriguez ([facility]) & Dr. Sherman Multani ([facility] in [place]) History of hemoptysis History of nasal polyp Tubular adenoma of colon Surgical History History of arthroscopy of left knee History of bronchoscopy +10 years ago. History of colonoscopy History of endoscopic sinus surgery x2 History of esophagogastroduodenoscopy (EGD) History of inguinal hernia repair bilateral S/P appendectomy S/P right knee arthroscopy Family History Mother Breast cancer Grandmother (Paternal) Pancreatic cancer Other Asthma Cancer Coronary heart disease Myocardial infarction No family history of adverse response to anesthesia Skin cancer Social History Smoking Status: Never smoker Second Hand Exposure: No; Do You Dip or Chew Tobacco: No; Hx Alcohol Use: Yes Alcohol type: beer Hx Substance Use: No Preferred Language: Cook Islander Communication Ability: Effective 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 Beliefs That Will Affect Care: None marital status: Current Living Situation: Spouse and Family Current Living Situation Comment: Lives with and 7yr old child current occupational status: employed Other Information That Helps Us Care for You: No Feels Safe at Home: Yes Safety Concerns: Feels Safe At This Time Assistive Devices: Glasses Allergies Allergies Allergy/AdvReac Type Severity Reaction Status Date / Time No Known Allergies Allergy Verified 01/15/23 11:06 Home Meds Home Medications Medication Instructions Recorded Confirmed albuterol sulfate 90 mcg/actuation 1 - 2 puff inhalation Q6H PRN 02/24/19 01/15/23 aerosol inhaler Shortness Of Breath Or Wheezing cetirizine 10 mg tablet 10 mg PO QAM 02/24/19 01/15/23 dornase mandy 1 mg/mL solution for 1 mg inhalation QAM 02/24/19 01/15/23 inhalation ergocalciferol (vitamin D2) 1,250 50,000 units PO WEEKLY 02/24/19 01/15/23 mcg (50,000 unit) capsule esomeprazole magnesium 40 mg 40 mg PO BID 02/24/19 01/15/23 capsule,delayed release fluticasone 500 mcg-salmeterol 50 1 puffs inhalation BID #1 ea 02/24/19 01/15/23 mcg/dose blistr powdr for inhalation (Advair Diskus) fluticasone propionate 50 1 sprays intranasal QAM 02/24/19 01/15/23 mcg/actuation nasal spray,suspension wdwqqa-bggcojwa-iefyqxh 7 cap PO TIDM 02/24/19 01/15/23 24,000-76,000-120,000 unit capsule,delayed rel (Creon) montelukast 10 mg tablet 10 mg PO QAM 04/03/19 01/15/23 elexacaftor 100 mg-tezacaf 2 ea PO QAM 09/01/19 01/15/23 50mg-ivacaf 75mg(d)/ivacaf 150mg(n) tablets (Trikafta) multivitamin (Multiple Vitamins 1 tab PO DAILY 09/01/19 01/15/23 tablet) elexacaftor 100 mg-tezacaf 1 ea PO QPM 12/30/19 01/15/23 50mg-ivacaf 75mg(d)/ivacaf 150mg(n) tablets (Trikafta) tobramycin 28 mg capsule with See Rx Instructions .Route .COMPLEX 02/16/21 01/15/23 inhalation device lubiprostone 8 mcg capsule 8 mcg PO DAILY PRN Unknown 01/15/23 01/15/23 (Amitiza) Previous Rx's Medication Instructions Recorded sildenafil 25 mg tablet 25 mg PO UD PRN Sexual Activity 06/28/20 #10 tabs dupilumab 200 mg/1.14 mL See Rx Instructions .Route 07/18/22 subcutaneous syringe (Dupixent) .COMPLEX #2.28 mL Results & Data (ED) Vital Signs Vital Signs - 24 hr 01/15/23 08:30 01/15/23 08:57 01/15/23 08:59 Temperature 36.6 C Temperature Source Temporal Artery Scan Pulse Rate 70 62 Pulse Rate [Apical] 64 Pulse Rate from SpO2 Sensor Respiratory Rate 18 20 Respiratory Effort / Characteristics Non-Labored Non-Labored Respiratory Depth Normal Normal Blood Pressure 125/84 Blood Pressure [Right Arm] 146/85 H Blood Pressure Mean 97 Blood Pressure Mean [Right Arm] 105 Blood Pressure Position Sitting Pulse Oximetry 97 97 Oxygen Delivery Method Room Air Room Air Sepsis Recent Fever Within 48 Hours No Sepsis New/Unexplained Change in Mental Status No Sepsis Action Taken by Nursing No Action Required 01/15/23 10:13 01/15/23 11:00 01/15/23 11:30 Temperature Temperature Source Pulse Rate 55 L Pulse Rate [Apical] 61 Pulse Rate from SpO2 Sensor Respiratory Rate 20 18 Respiratory Effort / Characteristics Respiratory Depth Normal Blood Pressure 126/88 136/88 Blood Pressure [Right Arm] Blood Pressure Mean 100 108 Blood Pressure Mean [Right Arm] Blood Pressure Position Pulse Oximetry 98 99 Oxygen Delivery Method Room Air Room Air Sepsis Recent Fever Within 48 Hours Sepsis New/Unexplained Change in Mental Status Sepsis Action Taken by Nursing 01/15/23 12:37 Temperature Temperature Source Pulse Rate Pulse Rate [Apical] Pulse Rate from SpO2 Sensor 60 Respiratory Rate 20 Respiratory Effort / Characteristics Respiratory Depth Blood Pressure 132/78 Blood Pressure [Right Arm] Blood Pressure Mean 96 Blood Pressure Mean [Right Arm] Blood Pressure Position Pulse Oximetry 98 Oxygen Delivery Method Sepsis Recent Fever Within 48 Hours Sepsis New/Unexplained Change in Mental Status Sepsis Action Taken by Nursing Laboratory Data 01/15/23 09:01 01/15/23 09:01 Lab Results 01/15/23 01/15/23 01/15/23 Range/Units 09:01 09:01 09:01 WBC 7.60 (4.8-10.8) K/ul RBC 5.04 (4.70-6.10) M/uL Hgb 15.5 (14.0-18.0) g/dl Hct 42.9 (42.0-52.0) % MCV 85.1 (80.0-100.0) fL MCH 30.8 (25.0-34.0) pg MCHC 36.1 H (32.0-36.0) g/dL RDW Std Deviation 40.9 (36.4-46.3) fL RDW Coeff of Cynthia 13.3 (11.5-14.5) % Plt Count 264 (130-400) K/uL MPV 10.1 (9.4-12.4) fL Immature Gran % (Auto) 0.1 % Neut % (Auto) 62.1 % Lymph % (Auto) 23.3 % [place] % (Auto) 10.8 % Eos % (Auto) 3.2 % Baso % (Auto) 0.5 % Neut # (Auto) 4.72 (1.40-6.50) K/uL Lymph # (Auto) 1.77 (1.2-3.4) K/uL [place] # (Auto) 0.82 H (0.11-0.59) K/uL Eos # (Auto) 0.24 (0-0.50) K/uL Baso # (Auto) 0.04 (0-0.2) K/uL Immature Gran # (Auto) 0.01 (0.01-0.20) K/uL PT 11.0 (9.0-12.0) Seconds INR 1.0 (0.9-1.1) APTT 27.1 (21.0-31.0) Seconds PTT Ratio 1.0 Sodium 138 (136-145) mmol/L Potassium 4.6 (3.5-5.1) mmol/L Chloride 105 (98-107) mmol/L Carbon Dioxide 29 (21-32) mmol/L Anion Gap 4 (3-11) BUN 18 (6-23) mg/dl Creatinine 0.87 (0.6-1.4) mg/dl Est Cr Clr Drug Dosing 116.4 ml/min Est GFR ( Amer) 120.0 ml/min Est GFR (Non-Af Amer) 103.5 ml/min BUN/Creatinine Ratio 20.7 H (10-20) Glucose 98 (70-99(Fasting)) mg/dl Calcium 9.6 (8.6-10.3) mg/dl Total Bilirubin 0.7 (0.2-1.0) mg/dl AST 13 (13-39) U/L ALT 12 (7-52) U/L Alkaline Phosphatase 93 (34-104) U/L Total Protein 7.5 (6.0-8.3) gm/dl Albumin 4.4 (3.4-5.0) gm/dl Globulin 3.1 (2.5-4.0) gm/dl Albumin/Globulin Ratio 1.4 (0.9-2) Procalcitonin (0-0.5) ng/ml Adenovirus (PCR) (NotDetected) B. pertussis DNA (PCR) (NotDetected) B.parapertussis DNA PCR (NotDetected) C. pneumoniae DNA (PCR) (NotDetected) Coronavirus OC43 (PCR) (NotDetected) Coronavirus HKU1 (PCR) (NotDetected) Coronavirus 229E (PCR) (NotDetected) SARS-CoV-2 (PCR) (NotDetected) Coronavirus NL63 (PCR) (NotDetected) Human Metapneumovir PCR (NotDetected) Influenza Type A (PCR) (NotDetected) Influenza Type B (PCR) (NotDetected) M. pneumoniae (PCR) (NotDetected) Parainfluenza 1 (PCR) (NotDetected) Parainfluenza 2 (PCR) (NotDetected) Parainfluenza 3 (PCR) (NotDetected) Parainfluenza 4 (PCR) (NotDetected) RSV (PCR) (NotDetected) Entero/Rhino (PCR) (NotDetected) 01/15/23 01/15/23 Range/Units 09:01 11:52 WBC (4.8-10.8) K/ul RBC (4.70-6.10) M/uL Hgb (14.0-18.0) g/dl Hct (42.0-52.0) % MCV (80.0-100.0) fL MCH (25.0-34.0) pg MCHC (32.0-36.0) g/dL RDW Std Deviation (36.4-46.3) fL RDW Coeff of Cynthia (11.5-14.5) % Plt Count (130-400) K/uL MPV (9.4-12.4) fL Immature Gran % (Auto) % Neut % (Auto) % Lymph % (Auto) % [place] % (Auto) % Eos % (Auto) % Baso % (Auto) % Neut # (Auto) (1.40-6.50) K/uL Lymph # (Auto) (1.2-3.4) K/uL [place] # (Auto) (0.11-0.59) K/uL Eos # (Auto) (0-0.50) K/uL Baso # (Auto) (0-0.2) K/uL Immature Gran # (Auto) (0.01-0.20) K/uL PT (9.0-12.0) Seconds INR (0.9-1.1) APTT (21.0-31.0) Seconds PTT Ratio Sodium (136-145) mmol/L Potassium (3.5-5.1) mmol/L Chloride (98-107) mmol/L Carbon Dioxide (21-32) mmol/L Anion Gap (3-11) BUN (6-23) mg/dl Creatinine (0.6-1.4) mg/dl Est Cr Clr Drug Dosing ml/min Est GFR ( Amer) ml/min Est GFR (Non-Af Amer) ml/min BUN/Creatinine Ratio (10-20) Glucose (70-99(Fasting)) mg/dl Calcium (8.6-10.3) mg/dl Total Bilirubin (0.2-1.0) mg/dl AST (13-39) U/L ALT (7-52) U/L Alkaline Phosphatase (34-104) U/L Total Protein (6.0-8.3) gm/dl Albumin (3.4-5.0) gm/dl Globulin (2.5-4.0) gm/dl Albumin/Globulin Ratio (0.9-2) Procalcitonin < 0.05 (0-0.5) ng/ml Adenovirus (PCR) Not Detected (NotDetected) B. pertussis DNA (PCR) Not Detected (NotDetected) B.parapertussis DNA PCR Not Detected (NotDetected) C. pneumoniae DNA (PCR) Not Detected (NotDetected) Coronavirus OC43 (PCR) Not Detected (NotDetected) Coronavirus HKU1 (PCR) Not Detected (NotDetected) Coronavirus 229E (PCR) Not Detected (NotDetected) SARS-CoV-2 (PCR) Not Detected (NotDetected) Coronavirus NL63 (PCR) Not Detected (NotDetected) Human Metapneumovir PCR Not Detected (NotDetected) Influenza Type A (PCR) Not Detected (NotDetected) Influenza Type B (PCR) Not Detected (NotDetected) M. pneumoniae (PCR) Not Detected (NotDetected) Parainfluenza 1 (PCR) Not Detected (NotDetected) Parainfluenza 2 (PCR) Not Detected (NotDetected) Parainfluenza 3 (PCR) Not Detected (NotDetected) Parainfluenza 4 (PCR) Not Detected (NotDetected) RSV (PCR) Not Detected (NotDetected) Entero/Rhino (PCR) Not Detected (NotDetected) Administered Medications Sodium Chloride (Nss 1000ml) 1,000 mls @ 100 mls/hr IV .Q10H NALLELY Stop: 02/14/23 09:44 Last Admin: 01/15/23 09:45 Dose: 100 mls/hr Documented By: AMIRA Discontinued Medications Ciprofloxacin (Ciprofloxacin 500 Mg Tab) 750 mg PO NOW ONE Stop: 01/15/23 11:46 Last Admin: 01/15/23 11:53 Dose: 750 mg Documented By: JOHN Cefepime HCl (Maxipime) 2,000 mg in 20 mls @ 5 mls/min IV NOW STA; Protocol Stop: 01/15/23 09:43 Last Admin: 01/15/23 09:44 Dose: 5 mls/min Documented By: AMIRA Ioversol (Optiray 320 125ml) 119 ml IV ONCE ONE Stop: 01/15/23 10:01 Last Admin: 01/15/23 10:00 Dose: 119 ml Documented By: BRM Imaging Data Radiologist's Impression: Chest CTA 01/15/23 09:36 CT angio chest PE protocol CLINICAL HISTORY: hemoptysis, CF patient TECHNIQUE: Multidetector row helical CT of the chest was performed with angiogr aphic protocol. Coronal and sagittal reformations were obtained. Coronal and sagittal MIPS were obtained from the axial data set and were submitted for review. Automated dose lowering techniques and/or adjustment according to patient size were utilized for this exam. Comparison: Comparison is made to CT chest 08/31/2016 FINDINGS: Lungs and pleura: Extensive bronchiectasis, scarring, and cystic changes are seen favoring the upper lobes. Regions of hyperinflation are seen. A few nodular densities are seen most prominently a 10 mm nodule in the right lower lobe (series 5 image 58) decreased from prior exam where it measured 15 mm. Heart and pericardium: Heart size is normal. No pericardial effusion. Vessels: No evidence of pulmonary embolism. Mediastinum and patricia: Unremarkable. Chest wall and lower neck: Unremarkable. Abdomen: Unremarkable. Bones: Unremarkable. IMPRESSION: No evidence of pulmonary embolus. Chronic findings of cystic fibrosis with bronchiectasis, cystic changes, and infectious/inflammatory nodules which have improved from prior exam. ACT 112: Negative or not required by law. Electronically signed by: Tino Kraus M.D. 01/15/2023 10:45 AM Discharge Plan Visit Data Chief Complaint: Cough Stated Complaint: COUGHING UP BLOOD ED Provider: Usha Luna Discharge Problem: Hemoptysis, Cystic fibrosis Patient Disposition: Admitted As Inpatient Discharge Instructions Interventions: ED Discharge Assessment Last Done: 01/15/23 15:33
[2023-01-15] MEDS ORDERED: CIPROFLOXACIN 500 MG TAB PO ONE (11:45)
--- NOTE | 2023-01-15 13:00 | History & Physical Report ---
Date of Service January 15, 2023 Assessment & Plan (1) Hemoptysis: Plan: Patient presents with acute hemoptysis (1/4-1/2 cup) in the setting of cystic fibrosis - Initiate abx as primary concern would be infective cause- Continue with Cefepime and Ciprofloxacin - respiratory biofire panel- negative - PCT <0.05 - Sputum/Gram stain pending expectoration - INR is normal at 1.0 - CTA of chest negative for acute hemorrhage or PE - Pulmonary Consulted for following if hemoptysis would acutely worsen - Dr. Zach Multani ([phone]) patient's CF specialist/pulmonology at [place]- call for any concerns/changes - Patient currently able to expectorate- continue with MIRIAM- hold hypertonic (2) Cystic fibrosis: Plan: As above - Patient has not had a pulmonary infection admission since 2019 that he can remember and has not had hemoptysis since starting Trikafta - He is on once a month inhaled Tobramycin- due this month- if not discharged within 48 hours- consider adminstering - Continue Trikafta- patient to bring from home - Continue Creon - Continue Dornase - Continue MIRIAM and Advair (3) GERD (gastroesophageal reflux disease): Plan: Continue Esomeprazole or equivalent (4) Bronchiectasis: Plan: As above - hold hypertonic therapy - has not needed to use his vest in the recent past History of Present Illness Primary Care Provider: Raúl Kaplan MD 47 YOM with medical history of: Cystic Fibrosis (on Trikafta), Bronchiectasis, GERD, Asthma. Patient reports that he was out in the smoke on and Sunday as well as yesterday at [employer] [place]. Patient presents to the EMD today for being awakened this morning x2 with hemoptysis. Patient reports that last evening (01/14/23) he noted blood streaked mucous that cleared on its own, however this morning around ~430 he was awakened with "rattling in his chest" and upon awakening he had coughed up secretions that he noted tasted like blood. He went to the bathroom and expectorated the secretions noting brighter colored blood without clots and estimates maybe a teaspoon. He took his hypertonic saline nebulizer and albuterol with some expectoration of other blood. He went back to sleep and was awakened this morning with another episode of hemoptysis and feels at this time there was 1/4-1/2 cup of blood- again this was reported as think bright in color without clots and tato blood. He called his CF DR at [place] (Dr. Zach Multani ([phone]) who recommended he go to the [facility] and advised him to not do his hypertonic saline nebs. The patient reported to the [facility]. He has not had further eppisode of hemoptysis- he had a CTA of the chest that was negative for any acute hemorrhage or embolism. Dr. Jeremy JOLLEY discussed case with Dr. Multani at [place] and recommended abx coverage and admission to hospital. He recommended coverage with Cefepime and Ciprofloxacin. Patient has received both of these. Patient will be admitted for observation for re- occurence of hemoptysis and abx administration. Pulmonary will be consulted in- case hemoptysis would require treatment/further investigation. CODE: FULL COVID: Negative Allergies Allergy/AdvReac Type Severity Reaction Status Date / Time No Known Allergies Allergy Verified 01/15/23 11:06 Home Medications Medication Instructions Recorded Confirmed Type albuterol sulfate 90 mcg/actuation 1 - 2 puff inhalation Q6H PRN 02/24/19 01/15/23 History aerosol inhaler Shortness Of Breath Or Wheezing cetirizine 10 mg tablet 10 mg PO QAM 02/24/19 01/15/23 History dornase mandy 1 mg/mL solution for 1 mg inhalation QAM 02/24/19 01/15/23 History inhalation ergocalciferol (vitamin D2) 1,250 50,000 units PO WEEKLY 02/24/19 01/15/23 History mcg (50,000 unit) capsule esomeprazole magnesium 40 mg 40 mg PO BID 02/24/19 01/15/23 History capsule,delayed release fluticasone 500 mcg-salmeterol 50 1 puffs inhalation BID #1 ea 02/24/19 01/15/23 History mcg/dose blistr powdr for inhalation (Advair Diskus) fluticasone propionate 50 1 sprays intranasal QAM 02/24/19 01/15/23 History mcg/actuation nasal spray,suspension [id number] 7 cap PO TIDM 02/24/19 01/15/23 History 24,000-76,000-120,000 unit capsule,delayed rel (Creon) montelukast 10 mg tablet 10 mg PO QAM 04/03/19 01/15/23 History elexacaftor 100 mg-tezacaf 2 ea PO QAM 09/01/19 01/15/23 History 50mg-ivacaf 75mg(d)/ivacaf 150mg(n) tablets (Trikafta) multivitamin (Multiple Vitamins 1 tab PO DAILY 09/01/19 01/15/23 History tablet) elexacaftor 100 mg-tezacaf 1 ea PO QPM 12/30/19 01/15/23 History 50mg-ivacaf 75mg(d)/ivacaf 150mg(n) tablets (Trikafta) sildenafil 25 mg tablet 25 mg PO UD PRN Sexual Activity 06/28/20 01/15/23 Rx #10 tabs tobramycin 28 mg capsule with See Rx Instructions .Route .COMPLEX 02/16/21 01/15/23 History inhalation device dupilumab 200 mg/1.14 mL See Rx Instructions .Route 07/18/22 01/15/23 Rx subcutaneous syringe (Dupixent) .COMPLEX #2.28 mL lubiprostone 8 mcg capsule 8 mcg PO DAILY PRN Unknown 01/15/23 01/15/23 History (Amitiza) Past Med/Surg History Medical History Asthma Bronchiectasis Cystic fibrosis GERD (gastroesophageal reflux disease) History of allergic bronchopulmonary aspergillosis follows with Dr. Chrisitan Rodriguez ([facility] [place]) & Dr. Sherman Multani ([facility] in [place]) History of hemoptysis History of nasal polyp Tubular adenoma of colon Surgical History History of arthroscopy of left knee History of bronchoscopy +10 years ago. History of colonoscopy History of endoscopic sinus surgery x2 History of esophagogastroduodenoscopy (EGD) History of inguinal hernia repair bilateral S/P appendectomy S/P right knee arthroscopy Family History Mother Breast cancer Grandmother (Paternal) Pancreatic cancer Other Asthma Cancer Coronary heart disease Myocardial infarction No family history of adverse response to anesthesia Skin cancer Social History Smoking Status: Never smoker Second Hand Exposure: No; Do You Dip or Chew Tobacco: No; Hx Alcohol Use: Yes Alcohol type: beer Hx Substance Use: No Preferred Language: Indonesian Communication Ability: Effective Freight Caller Required: No Beliefs That Will Affect Care: None marital status: Current Living Situation: Spouse and Family Current Living Situation Comment: Lives with and 7yr old child current occupational status: employed Other Information That Helps Us Care for You: No Feels Safe at Home: Yes Safety Concerns: Feels Safe At This Time Assistive Devices: Glasses Review of Systems Review of Systems: REVIEW OF SYSTEMS: Constitutional: No fever, sweats or chills Eyes: No diplopia, no worsening or blurred vision ENT: normal hearing, no trouble swallowing Respiratory: (+) cough, sputum, hemoptysis, No dyspnea at rest or on exertion, no plueritic pain Cardiovascular: No chest pain, tightness or palpitations Abdomen: No pain, nausea, vomiting, diarrhea or constipation Musculoskeletal: No joint pain, calf pain, swelling Neurologic: No weakness, numbness/tingling, or balance problems Psychiatric: No anxiety or depression Skin: No rash or itch Physical Exam Physical Exam: PHYSICAL EXAM: General: awake, alert, no apparent distress Head: Normocephalic, atraumatic ENT: PERRL, EOMI, no pharyngeal exudate, mucous membranes moist, no blood noted at back of throat or in nares Neuro: AAO x 3, speech clear and appropriate, strength intact bilaterally 5/5, sensation intact and equal all extremities and dermatomes, no pronator drift Chest: equal rise and fall of the chest, no accessory muscle use, no heaves or thrills, Clear to auscultation, on room air, Cardiac: Regular rate and rhythm, telemetry reviewed- NSR, skin warm dry, cap refill <3 seconds, peripheral pulses +2 no JVD, no murmur, no edema GI: NABS x 4 quadrants, soft, nontender to palpation, no rebound, guarding or tenderness : Spontaneously voiding, no pain, no CVA tenderness, Extremities: Normal inspection, no peripheral edema or erythema, calfs nontender to palpation Psych: Normal mood and affect Skin: no rash or erythema Results & Data Results & Data Vital Signs (Past 12 Hours) Vital Signs Temp Pulse Pulse Resp BP BP Pulse Ox 01/15/23 11:00 55 L 18 126/88 99 01/15/23 10:13 61 20 98 01/15/23 08:59 64 20 146/85 H 97 01/15/23 08:57 62 01/15/23 08:30 36.6 C 70 18 125/84 97 O2 Del Method 01/15/23 11:00 Room Air 01/15/23 10:13 Room Air 01/15/23 08:59 Room Air 01/15/23 08:57 01/15/23 08:30 Room Air Laboratory Results Abnormal lab results 01/15/23 01/15/23 Range/Units 09:01 09:01 MCHC 36.1 H (32.0-36.0) g/dL Bryan # (Auto) 0.82 H (0.11-0.59) K/uL BUN/Creatinine Ratio 20.7 H (10-20) Diagnostic Findings Chest CTA 01/15/23 09:36 CT angio chest PE protocol CLINICAL HISTORY: hemoptysis, CF patient TECHNIQUE: Multidetector row helical CT of the chest was performed with angiographic protocol. Coronal and sagittal reformations were obtained. Coronal and sagittal MIPS were obtained from the axial data set and were submitted for review. Automated dose lowering techniques and/or adjustment according to patient size were utilized for this exam. Comparison: Comparison is made to CT chest 08/31/2016 FINDINGS: Lungs and pleura: Extensive bronchiectasis, scarring, and cystic changes are seen favoring the upper lobes. Regions of hyperinflation are seen. A few nodular densities are seen most prominently a 10 mm nodule in the right lower lobe (series 5 image 58) decreased from prior exam where it measured 15 mm. Heart and pericardium: Heart size is normal. No pericardial effusion. Vessels: No evidence of pulmonary embolism. Mediastinum and patricia: Unremarkable. Chest wall and lower neck: Unremarkable. Abdomen: Unremarkable. Bones: Unremarkable. IMPRESSION: No evidence of pulmonary embolus. Chronic findings of cystic fibrosis with bronchiectasis, cystic changes, and infectious/inflammatory nodules which have improved from prior exam. ACT 112: Negative or not required by law. Electronically signed by: Tino Kraus M.D. 01/15/2023 10:45 AM Medications Administered Home Medications albuterol sulfate 90 mcg/actuation aerosol inhaler 1 - 2 puff inhalation Q6H PRN Shortness Of Breath Or Wheezing 02/24/19 [History Confirmed 01/15/23] cetirizine 10 mg tablet 10 mg PO QAM 02/24/19 [History Confirmed 01/15/23] dornase mandy 1 mg/mL solution for inhalation 1 mg inhalation QAM 02/24/19 [History Confirmed 01/15/23] ergocalciferol (vitamin D2) 1,250 mcg (50,000 unit) capsule 50,000 units PO WEEKLY 02/24/19 [History Confirmed 01/15/23] esomeprazole magnesium 40 mg capsule,delayed release 40 mg PO BID 02/24/19 [History Confirmed 01/15/23] fluticasone 500 mcg-salmeterol 50 mcg/dose blistr powdr for inhalation (Advair Diskus) 1 puffs inhalation BID #1 ea 02/24/19 [History Confirmed 01/15/23] fluticasone propionate 50 mcg/actuation nasal spray,suspension 1 sprays intranasal QAM 02/24/19 [History Confirmed 01/15/23] [id number]-[id number]-[id number] 24,000-76,000-120,000 unit capsule,delayed rel (Creon) 7 cap PO TIDM 02/24/19 [History Confirmed 01/15/23] montelukast 10 mg tablet 10 mg PO QAM 04/03/19 [History Confirmed 01/15/23] elexacaftor 100 mg-tezacaf 50mg-ivacaf 75mg(d)/ivacaf 150mg(n) tablets (Trikafta) 2 ea PO QAM 09/01/19 [History Confirmed 01/15/23] multivitamin (Multiple Vitamins tablet) 1 tab PO DAILY 09/01/19 [History Confirmed 01/15/23] elexacaftor 100 mg-tezacaf 50mg-ivacaf 75mg(d)/ivacaf 150mg(n) tablets (Trikafta) 1 ea PO QPM 12/30/19 [History Confirmed 01/15/23] sildenafil 25 mg tablet 25 mg PO UD PRN Sexual Activity #10 tabs 06/28/20 [Rx Confirmed 01/15/23] tobramycin 28 mg capsule with inhalation device See Rx Instructions .Route .COMPLEX 02/16/21 [History Confirmed 01/15/23] dupilumab 200 mg/1.14 mL subcutaneous syringe ([employer]) See Rx Instructions .Route .COMPLEX #2.28 mL 07/18/22 [Rx Confirmed 01/15/23] lubiprostone 8 mcg capsule (Amitiza) 8 mcg PO DAILY PRN Unknown 01/15/23 [History Confirmed 01/15/23] Active Medications Sodium Chloride (Nss 1000ml) 1,000 mls @ 100 mls/hr IV .Q10H NALLELY Stop: 02/14/23 09:44 Last Admin: 01/15/23 09:45 Dose: 100 mls/hr Sodium Chloride (Nss 1000ml) 1,000 mls @ 100 mls/hr IV .Q10H NALLELY Stop: 02/14/23 09:44 Last Admin: 01/15/23 09:45 Dose: 100 mls/hr Documented By: AMIRA Discontinued Medications Ciprofloxacin (Ciprofloxacin 500 Mg Tab) 750 mg PO NOW ONE Stop: 01/15/23 11:46 Last Admin: 01/15/23 11:53 Dose: 750 mg Documented By: BEENAS Cefepime HCl (Maxipime) 2,000 mg in 20 mls @ 5 mls/min IV NOW STA; Protocol Stop: 01/15/23 09:43 Last Admin: 01/15/23 09:44 Dose: 5 mls/min Documented By: AMIRA Ioversol (Optiray 320 125ml) 119 ml IV ONCE ONE Stop: 01/15/23 10:01 Last Admin: 01/15/23 10:00 Dose: 119 ml Documented By: BRM ECG Additional Comments: none Code Status & VTE Plan VTE Prophylaxis Plan VTE Prophylaxis will be ordered: Yes Supervising Physician Co-Signing Physician Notes I personally saw and examined the patient. I verified all white points and agree with LORETTA Guerrero with the following exceptions and/or additions: 47 year old male with cystic fibrosis presents with hemoptysis (half a cup) occurring while lying down this morning. No fever, chills, cough, shortness of breath. O/E Well appearing, no oropharyngeal abnormality, HS RRR, no murmurs, Chest CTAB, Abdo SNT A/P Hemoptysis - coags normal, CTA normal, now resolved but he is concerned may recur overnight as he lies down. Cefepime/cipro advised by his CF activities therapist. Consult pulmonology for ongoing recommendations. PG Care Time/CCT Total # of Minutes Spent Total Time Spent with Patient: Total time spent is greater than 50% in coordination of care (as documented) at patient's floor/unit and/or counseling patient: Coding Level of Care Code 23634 INT INP/OBS CARE 2/55MIN Diagnoses Hemoptysis R04.2 Cystic fibrosis E84.9 GERD (gastroesophageal reflux disease) K21.9 Bronchiectasis J47.9
[2023-01-15 13:09] LABS: Adenovirus PCR Not Detected (NotDetected); Bordetella parapertussis PCR Not Detected (NotDetected); Bordetella pertussis PCR Not Detected (NotDetected); Chlamydia pneumoniae PCR Not Detected (NotDetected); Coronavirus 229E PCR Not Detected (NotDetected); Coronavirus CoV-2 (COVID19)PCR Not Detected (NotDetected); Coronavirus HKU1 PCR Not Detected (NotDetected); Coronavirus NL63 PCR Not Detected (NotDetected); Coronavirus OC43PCR Not Detected (NotDetected); Human Metapneumovirus PCR Not Detected (NotDetected); Influenza A PCR Not Detected (NotDetected); Influenza B PCR Not Detected (NotDetected); Mycoplasma pneumoniae PCR Not Detected (NotDetected); Parainfluenza Virus 1 PCR Not Detected (NotDetected); Parainfluenza Virus 2 PCR Not Detected (NotDetected); Parainfluenza Virus 3 PCR Not Detected (NotDetected); Parainfluenza Virus 4 PCR Not Detected (NotDetected); Respiratory Syncytial VirusPCR Not Detected (NotDetected); Rhinovirus/Enterovirus PCR Not Detected (NotDetected)
--- NOTE | 2023-01-15 14:23 | Pulmonary Consultation ---
Date of Consultation January 15, 2023 Assessment & Plan (1) Cystic fibrosis: (2) Hemoptysis: (3) Allergic rhinitis: (4) Bronchiectasis: (5) COPD (chronic obstructive pulmonary disease): (6) Multiple pulmonary nodules: Plan CTA chest 01/15/2023 personally reviewed: Cystic bronchiectasis appreciated in the lingula, bronchiectasis appreciated in the upper lobe as well as the right middle and right lower lobe Right lower lobe peripheral 5 mm pulmonary nodule, right upper lobe 10 mm spiculated nodule versus scarring (15 mm 2017) Centrilobular emphysema was to go home No mediastinal lymphadenopathy -- Hemoptysis Could be from acute exacerbation No clear signs of DAH on the CTA Respiratory bio fire negative Procalcitonin negative Continue with antitussive medication [id number] -- Bronchiectasis with cystic fibrosis On Trikafta, dornase mandy Continue with pancreatic enzymes Continue with dual coverage for possible Pseudomonal exacerbation Following up with Dr. Zach Jameson [phone] --COPD Likely from bronchiectasis On Advair at home Continue with bronchodilator PFT 11/15/2021: Severe obstructive lung dysfunction FVC 5.73 L 104%, FEV1 2.53 L 58%, FEV1/FVC 44% --Elevated IgE On Xolair as well as Dupixent along with montelukast and Zyrtec Following up with Dr. Kaplan Aspergillus fumigatus, Aspergillus Niger antibodies were negative in the past -- Multiple pulmonary nodules Largest one being right lower lobe 10 mm, this mostly looks like scarring from previous infection looking at the CT chest done in 2017 -- Centrilobular emphysema Patient is a lifetime non-smoker Alpha-1 level and phenotype will be ordered Plan: Continue with antitussive medication [id number] Hold hypertonic saline as well as flutter valve right now We will give prednisone 40 mg for 5 days Please note the above document was generated using voice recognition software. It may contain grammatical, syntax or spelling errors.Any formal questions or concerns about the content, text or information contained within the body of this dictation should be directly addressed to the provider for clarification. History of Present Illness History of Present Illness 47-year-old male presented to the hospital with complaints of blood in the p hlegm Past medical history: Cystic fibrosis on Trikafta, COPD, bronchiectasis Pulmonary consulted for the same The time of examination patient was resting comfortably. His last episode of hemoptysis was around 9 AM. He was saturating 96-97% on room air.. Denies any chest pain. Has been afebrile. No nausea or vomiting. Denies any recent episodes of severe coughing. Did take ibuprofen after the first episode of hemoptysis today. Denies taking any other blood thinners in the recent past No headache, no blurry vision Social history: Lifetime non-smoker Allergies Allergy/AdvReac Type Severity Reaction Status Date / Time No Known Allergies Allergy Verified 01/15/23 11:06 Home Medications Medication Instructions Recorded Confirmed Type albuterol sulfate 90 mcg/actuation 1 - 2 puff inhalation Q6H PRN 02/24/19 01/15/23 History aerosol inhaler Shortness Of Breath Or Wheezing cetirizine 10 mg tablet 10 mg PO QAM 02/24/19 01/15/23 History dornase mandy 1 mg/mL solution for 1 mg inhalation QA 02/24/19 01/15/23 History inhalation ergocalciferol (vitamin D2) 1,250 50,000 units PO WEEKLY 02/24/19 01/15/23 History mcg (50,000 unit) capsule esomeprazole magnesium 40 mg 40 mg PO BID 02/24/19 01/15/23 History capsule,delayed release fluticasone 500 mcg-salmeterol 50 1 puffs inhalation BID #1 ea 02/24/19 01/15/23 History mcg/dose blistr powdr for inhalation (Advair Diskus) fluticasone propionate 50 1 sprays intranasal QA 02/24/19 01/15/23 History mcg/actuation nasal spray,suspension [id number] 7 cap PO TIDM 02/24/19 01/15/23 History 24,000-76,000-120,000 unit capsule,delayed rel (Creon) montelukast 10 mg tablet 10 mg PO QAM 04/03/19 01/15/23 History elexacaftor 100 mg-tezacaf 2 ea PO QAM 09/01/19 01/15/23 History 50mg-ivacaf 75mg(d)/ivacaf 150mg(n) tablets (Trikafta) multivitamin (Multiple Vitamins 1 tab PO DAILY 09/01/19 01/15/23 History tablet) elexacaftor 100 mg-tezacaf 1 ea PO QPM 12/30/19 01/15/23 History 50mg-ivacaf 75mg(d)/ivacaf 150mg(n) tablets (Trikafta) sildenafil 25 mg tablet 25 mg PO UD PRN Sexual Activity 06/28/20 01/15/23 Rx #10 tabs tobramycin 28 mg capsule with See Rx Instructions .Route .COMPLEX 02/16/21 01/15/23 History inhalation device dupilumab 200 mg/1.14 mL See Rx Instructions .Route 07/18/22 01/15/23 Rx subcutaneous syringe (Dupixent) .COMPLEX #2.28 mL lubiprostone 8 mcg capsule 8 mcg PO DAILY PRN Unknown 01/15/23 01/15/23 History (Amitiza) Patient History Medical History Asthma Bronchiectasis Cystic fibrosis GERD (gastroesophageal reflux disease) History of allergic bronchopulmonary aspergillosis [place] [place] Dr. Sherman Multani ([facility] [place]) History of hemoptysis History of nasal polyp Tubular adenoma of colon Surgical History History of arthroscopy of left knee History of bronchoscopy +10 years ago. History of colonoscopy History of endoscopic sinus surgery x2 History of esophagogastroduodenoscopy (EGD) History of inguinal hernia repair bilateral S/P appendectomy S/P right knee arthroscopy Family History Mother Breast cancer Grandmother (Paternal) Pancreatic cancer Other Asthma Cancer Coronary heart disease Myocardial infarction No family history of adverse response to anesthesia Skin cancer Social History Smoking Status: Never smoker Second Hand Exposure: No; Do You Dip or Chew Tobacco: No; Hx Alcohol Use: Yes Alcohol type: beer Hx Substance Use: No Preferred Language: Uruguayan Communication Ability: Effective Train Gateman Required: No Beliefs That Will Affect Care: None marital status: Current Living Situation: Spouse and Family Current Living Situation Comment: Lives with and 7yr old child current occupational status: employed Other Information That Helps Us Care for You: No Feels Safe at Home: Yes Safety Concerns: Feels Safe At This Time Assistive Devices: Glasses Review of Systems Review of Systems: All systems reviewed & are unremarkable except as noted in HPI & below Physical Exam Physical Exam: Constitutional: No acute distress HEENT: EOMI, PERRLA Respiratory system: Decreased air entry bilaterally, no wheeze, no rhonchi, mild crackles bilaterally CVS: S1-S2 positive, no murmurs or gallops Abdomen: Soft, nontender, nondistended, positive bowel sounds x4 Extremities: +2 pulses bilaterally radialis/ dorsalis pedis, no cyanosis, no edema Neuro: Awake alert oriented x3 Psych: Normal mood and affect G/U: No Last Skin: no rashes, warm and dry Lymphatic: no cervical or axillary lymphadenopathy Results & Data Results & Data Vital Signs (Past 12 Hours) Vital Signs Temp Pulse Pulse Resp BP BP Pulse Ox 01/15/23 13:30 78 19 125/70 98 01/15/23 12:37 20 132/78 98 01/15/23 11:30 136/88 01/15/23 12:59 63 01/15/23 11:00 55 L 18 126/88 99 01/15/23 10:13 61 20 98 01/15/23 08:59 64 20 146/85 H 97 01/15/23 08:57 62 01/15/23 08:30 36.6 C 70 18 125/84 97 O2 Del Method 01/15/23 13:30 01/15/23 12:37 01/15/23 11:30 01/15/23 12:59 01/15/23 11:00 Room Air 01/15/23 10:13 Room Air 01/15/23 08:59 Room Air 01/15/23 08:57 01/15/23 08:30 Room Air Laboratory Results 01/15/23 09:01 01/15/23 09:01 PG Care Time/CCT Total # of Minutes Spent Total Time Spent with Patient: Total time spent is greater than 50% in coordination of care (as documented) at patient's floor/unit and/or counseling patient: Coding Level of Care Code 40315 INT INP/OBS CARE 3/75MIN Diagnoses Cystic fibrosis E84.9 Hemoptysis R04.2 Allergic rhinitis J30.9 Bronchiectasis J47.9 COPD (chronic obstructive pulmonary disease) J44.9 Multiple pulmonary nodules R91.8
[2023-01-15] MEDS ORDERED: ACETAMINOPHEN 325 MG TAB PO PRN (16:41)
[2023-01-15] MEDS ORDERED: ALBUTEROL HFA 8 GM INHALER INH PRN (16:41)
[2023-01-15] MEDS: predniSONE 20 MG TAB PO SCH (18:19)
[2023-01-15] MEDS: CEFEPIME 2,000 MG in SYRINGE 0 ML IV SCH (18:19)
[2023-01-15] MEDS: CIPROFLOXACIN / D5W 400 MG/200 ML BAG IV SCH (18:25)
[2023-01-15] MEDS: FLUTICASONE/VILANTEROL 200/25MCG 14 PUFFS/INHALER INH SCH (18:27)
[2023-01-15] MEDS: PANTOprazole 40 MG TAB PO SCH (20:37)
[2023-01-16] MEDS: CEFEPIME 2,000 MG in SYRINGE 0 ML IV SCH ×2 (02:01→10:23)
[2023-01-16] MEDS: CIPROFLOXACIN / D5W 400 MG/200 ML BAG IV SCH ×2 (02:05→10:31)
[2023-01-16] MEDS: SODIUM CHLORIDE 0.9% 1000ML 1,000 ML IV SCH (04:11)
[2023-01-16 06:35] LABS: Basophils # (auto) 0.01 K/uL (0-0.2); Basophils % (auto) 0.1 %; Eosinophils # (auto) 0.01 K/uL (0-0.50); Eosinophils % (auto) 0.1 %; Hematocrit (blood only) 42.6 % (42.0-52.0); Hemoglobin 15.2 g/dl (14.0-18.0); Immature Granulocytes # (auto) 0.03 K/uL (0.01-0.20); Immature Granulocytes % (auto) 0.4 %; Lymphocytes # (auto) 0.78 K/uL (1.2-3.4); Lymphocytes % (auto) 9.3 %; Mean Corpuscular Hemoglobin 30.7 pg (25.0-34.0); Mean Corpuscular Hgb Conc 35.7 g/dL (32.0-36.0); Mean Corpuscular Volume 86.1 fL (80.0-100.0); Mean Platelet Volume 10.2 fL (9.4-12.4); Monocytes # (auto) 0.24 K/uL (0.11-0.59); Monocytes % (auto) 2.8 %; Neutrophils # (auto) 7.36 K/uL (1.40-6.50); Neutrophils % (auto) 87.3 %; Platelet Count 286 K/uL (130-400); RDW Standard Deviation 40.4 fL (36.4-46.3); Red Blood Count 4.95 M/uL (4.70-6.10); White Blood Count 8.43 K/ul (4.8-10.8)
[2023-01-16 06:38] LABS: BUN Creatinine Ratio 22.5 (10-20); Calcium 9.2 mg/dl (8.6-10.3); Creatinine Clr Calc Pharmacy 142.7 ml/min; Est GFR (African American) 130.4 ml/min; Est GFR (Non-African American) 112.5 ml/min; Magnesium 1.8 mg/dl (1.7-2.4)
--- NOTE | 2023-01-16 06:46 | Pulmonology Progress Note ---
Date of Service January 16, 2023 Assessment & Plan (1) Cystic fibrosis: (2) Hemoptysis: (3) Allergic rhinitis: (4) Bronchiectasis: (5) COPD (chronic obstructive pulmonary disease): (6) Multiple pulmonary nodules: Plan CTA chest 01/15/2023 personally reviewed: Cystic bronchiectasis appreciated in the lingula, bronchiectasis appreciated in the upper lobe as well as the right middle and right lower lobe Right lower lobe peripheral 5 mm pulmonary nodule, right upper lobe 10 mm spiculated nodule versus scarring (15 mm 2017) Centrilobular emphysema was to go home No mediastinal lymphadenopathy -- Hemoptysis Could be from acute exacerbation No clear signs of DAH on the CTA Respiratory bio fire negative Procalcitonin negative Continue with antitussive medication [id number] -- Bronchiectasis with cystic fibrosis On Trikafta, dornase mandy Continue with pancreatic enzymes Continue with dual coverage for possible Pseudomonal exacerbation Following up with Dr. 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 Kaplan Aspergillus fumigatus, Aspergillus Niger, Aspergillus Flavus antibodies were negative in the past -- Multiple pulmonary nodules Largest one being right lower lobe 10 mm, this mostly looks like scarring from previous infection looking at the CT chest done in 2017 -- Centrilobular emphysema Patient is a lifetime non-smoker Alpha-1 level and phenotype will be ordered Plan: Continue with antitussive medication [id number] Hold hypertonic saline as well as flutter valve right now Continue with prednisone 40 mg for 5 days and antibiotic for total of 7-10 days Follow-up alpha-1 level, sputum culture and sputum AFB Plan was discussed with Dr. Saldivar Please note the above document was generated using voice recognition software. It may contain grammatical, syntax or spelling errors.Any formal questions or concerns about the content, text or information contained within the body of this dictation should be directly addressed to the provider for clarification. Admission and Anticipated Discharge Date Admission Date: January 15, 2023 Subjective Patient seen and examined at bedside. No acute distress, no adverse events overnight No hemoptysis since morning of 01/15/2023 Denies any chest pain, no shortness of breath Fair appetite No headache, no dizziness, no blurry vision Review of Systems Review of Systems: All systems reviewed & are unremarkable except as noted in Subjective Physical Exam Physical Exam: Constitutional: No acute distress HEENT: EOMI, PERRLA Respiratory system: Decreased air entry bilaterally, no wheeze, no rhonchi, mild crackles bilaterally CVS: S1-S2 positive, no murmurs or gallops Abdomen: Soft, nontender, nondistended, positive bowel sounds x4 Extremities: +2 pulses bilaterally radialis/ dorsalis pedis, no cyanosis, no edema Neuro: Awake alert oriented x3 Psych: Normal mood and affect G/U: No Last Skin: no rashes, warm and dry Lymphatic: no cervical or axillary lymphadenopathy Results & Data Results & Data Vital Signs (Past 12 Hours) Vital Signs Temp Pulse Resp BP Pulse Ox O2 Del Method 01/15/23 19:35 Room Air 01/15/23 21:30 36.8 C 59 L 18 133/82 97 Room Air PG Care Time/CCT Total # of Minutes Spent Total Time Spent with Patient: Total time spent is greater than 50% in coordination of care (as documented) at patient's floor/unit and/or counseling patient: Coding Level of Care Code 01001 SUB INP/OBS CARE 2/35MIN Diagnoses Cystic fibrosis E84.9 Hemoptysis R04.2 Allergic rhinitis J30.9 Bronchiectasis J47.9 COPD (chronic obstructive pulmonary disease) J44.9 Multiple pulmonary nodules R91.8
[2023-01-16 07:56] LABS: Prothrombin Time 11.1 Seconds (9.0-12.0)
[2023-01-16] MEDS: PROTEASE PO SCH ×2 (08:28→12:31)
[2023-01-16] MEDS: AMYLASE PO SCH ×2 (08:28→12:31)
[2023-01-16] MEDS: LIPASE PO SCH ×2 (08:28→12:31)
[2023-01-16] MEDS: FLUTICASONE/VILANTEROL 200/25MCG 14 PUFFS/INHALER INH SCH (08:30)
[2023-01-16] MEDS: PANTOprazole 40 MG TAB PO SCH (08:30)
[2023-01-16] MEDS: predniSONE 20 MG TAB PO SCH (08:30)
[2023-01-16] MEDS ORDERED: CETIRIZINE HCL 10 MG TABLET PO SCH (09:00)
[2023-01-16] MEDS ORDERED: DORNASE ALFA 2.5 ML AMP INH SCH (09:00)
[2023-01-16] MEDS ORDERED: MONTELUKAST SODIUM 10 MG TABLET PO SCH (09:00)
[2023-01-16] MEDS ORDERED: FLUTICASONE PROPIONATE NA SPR 16 GM BTL SCH (09:00)
[2023-01-16] MEDS ORDERED: [UNRECOGNIZED DRUG - OTHER] PO SCH (09:00)
--- NOTE | 2023-01-16 14:05 | Discharge Summary ---
Date of Service January 16, 2023 Admission HPI Per Admitting Provider 47 YOM with medical history of: Cystic Fibrosis (on Trikafta), Bronchiectasis, GERD, Asthma. Patient reports that he was out in the smoke on and Sunday as well as yesterday at swim meet. Patient presents to the [facility] today for being awakened this morning x2 with hemoptysis. Patient reports that last evening (01/14/23) he noted blood streaked mucous that cleared on its own, however this morning around ~430 he was awakened with "rattling in his chest" and upon awakening he had coughed up secretions that he noted tasted like blood. He went to the bathroom and expectorated the secretions noting brighter colored blood without clots and estimates maybe a teaspoon. He took his hypertonic saline nebulizer and albuterol with some expectoration of other blood. He went back to sleep and was awakened this morning with another episode of hemoptysis and feels at this time there was 1/4-1/2 cup of blood- again this was reported as think bright in color without clots and tato blood. He called his CF DR at [place] (Dr. Zach Multani ([phone]) who recommended he go to the [facility] and advised him to not do his hypertonic saline nebs. The patient reported to the [facility]. He has not had further eppisode of hemoptysis- he had a CTA of the chest that was negative for any acute hemorrhage or embolism. Dr. Jeremy JOLLEY discussed case with Dr. Multani at [place] and recommended abx coverage and admission to [facility]. He recommended coverage with Cefepime and Ciprofloxacin. Patient has received both of these. Patient will be admitted for observation for re- occurence of hemoptysis and abx administration. Pulmonary will be consulted in- case hemoptysis would require treatment/further investigation. CODE: FULL COVID: Negative Principal Diagnosis cystic fibrosis, hemoptysis Discharge Exam The patient is awake, alert and oriented 3, well developed and well nourished, normocephalic and atraumatic, lying in bed and in no acute distress. HEENT--PERRL, EOMI, mucous membranes and oropharynx mildly dry Neck--supple. No JVD. No bruits. Thyroid normal, trachea midline, no adenopathy. Heart--normal S1 and S2. No murmurs, rubs or gallops. Lungs--clear bilaterally, no respiratory distress, no accessory muscle use. Abdomen--normal bowel sounds and soft. Mild epigastric and left sided abdominal pain Extremities--no cyanosis or clubbing. No edema. Dermatologic--normal skin turgor, normal color, no abnormal lymph nodes, no rash. Neurologic--cranial nerves II through XII grossly intact. Rheumatologic--normal range of motion. Psychiatric--normal affect. Discharge Data Allergies Allergy/AdvReac Type Severity Reaction Status Date / Time No Known Allergies Allergy Verified 01/15/23 11:06 Consultations 01/15/23 12:27 ED Decision to Admit Stat 01/15/23 13:27 Consult Pulmonology Routine Ordered Studies 01/15/23 09:36 CT angio chest PE protocol Stat Hospital Course (1) Hemoptysis: Patient presents with acute hemoptysis (1/4-1/2 cup) in the setting of cystic fibrosis - Initiate abx as primary concern would be infective cause- Continue with Cefepime and Ciprofloxacin - respiratory biofire panel- negative - PCT <0.05 - Sputum/Gram stain pending expectoration - INR is normal at 1.0 - CTA of chest negative for acute hemorrhage or PE - Pulmonary Consulted for following if hemoptysis would acutely worsen - Dr. Zach Multani ([phone]) patient's CF specialist/pulmonology at [place]- call for any concerns/changes - Patient currently able to expectorate- continue with MIRIAM- hold hypertonic -Evaluated by Pulm, recommend d/c on Predisone 40mg daily for 5 days and PO Ciprofloxacin for 7 days and Robitussin with coedine (2) Cystic fibrosis: As above - Patient has not had a pulmonary infection admission since 2019 that he can remember and has not had hemoptysis since starting Trikafta - He is on once a month inhaled Tobramycin- due this month- if not discharged within 48 hours- consider adminstering - Continue Trikafta- patient to bring from home - Continue Creon - Continue Dornase - Continue MIRIAM and Advair (3) GERD (gastroesophageal reflux disease): Continue Esomeprazole or equivalent (4) Bronchiectasis: As above - hold hypertonic therapy - has not needed to use his vest in the recent past Plan d/c home Total Time Total Time Spent Total Time Spent (In Minutes): 35 Discharge Plan Discharge Items Patient Disposition: Home - Self-Care Reason For Visit: HEMOPTYSIS WITH CF Discharge Diagnosis: Cystic fibrosis, hemoptysis Activity: Resume your previous activity Non-emergency contact: Primary Care Provider and Non Profit Director Call non-emergency contact if: you have any medication questions and your symptoms worsen Follow-up/Referrals: Raúl Kaplan MD [Primary Care Provider] - Diet: Regular Addtl Attending Provider Instructions: please follow up with your regular Non Profit Director Please do not use hypertonic saline for the next 5 days Pending Studies at Discharge: No Stand-Alone Forms: My [employer], Smoking Cessation Medications and DC Order Prescriptions: New prednisone 20 mg Tablet 40 mg PO DAILY 4 Days Qty: 8 0RF ciprofloxacin HCl 500 mg tablet 500 mg PO BID 7 Days Qty: 14 0RF Continued sildenafil 25 mg tablet 25 mg PO UD PRN (Reason: Sexual Activity) Qty: 10 11RF Rx Instructions: take 1 hour before needed Dupixent Syringe 200 mg/1.14 mL syringe See Rx Instructions .ROUTE .COMPLEX Qty: 2.28 11RF Dose Instruction: INJECT 1 SYRINGE (200 MG) UNDER THE SKIN EVERY TWO WEEKS Rx Instructions: INJECT 1 SYRINGE (200 MG) UNDER THE SKIN EVERY TWO WEEKS APPROVED under pharmacy benefit GOOD 02/07/22-04/09/23 fluticasone propion-salmeterol [Advair Diskus] 500-50 mcg/dose blister with device 1 puffs inhalation BID Qty: 1 cetirizine 10 mg tablet 10 mg PO QAM Patient Comments: 10 mg PO Daily as directed; fluticasone propionate 50 mcg/actuation spray,suspension 1 sprays intranasal QAM esomeprazole magnesium 40 mg capsule,delayed release(DR/EC) 40 mg PO BID albuterol sulfate 90 mcg/actuation HFA aerosol inhaler 1 - 2 puff inhalation Q6H PRN (Reason: Shortness Of Breath Or Wheezing) Patient Comments: 1-2 puffs inhalation Q6H PRN; ergocalciferol (vitamin D2) 50,000 unit capsule 50,000 units PO WEEKLY Rx Instructions: Wednesdays dornase mandy 1 mg/mL solution 1 mg inhalation QAM Patient Comments: 1 unit dose inhalation DAILY; Creon 24,000-76,000 -120,000 unit capsule,delayed release(DR/EC) 7 cap PO TIDM Patient Comments: PO As directed; montelukast 10 mg tablet 10 mg PO QAM multivitamin [Multiple Vitamins] Tablet 1 tab PO DAILY Trikafta 100-50-75 mg(d) /150 mg (n) tablets, sequential 2 ea PO QAM Trikafta 100-50-75 mg(d) /150 mg (n) Tablets, Sequential 1 ea PO QPM tobramycin 28 mg Capsule, W/Inhalation Device See Rx Instructions .ROUTE .COMPLEX Patient Comments: takes 1 month on, 1 month off Rx Instructions: 1 cap twice daily per inhalation every other month. Currently taking 01/13/23- 02/11/23 then will stop for 30 days. lubiprostone [Amitiza] 8 mcg capsule 8 mcg PO DAILY PRN (Reason: Unknown) Discharge Orders: Discharge Order (Routine); Ordered 01/16/23 Ordered By: Natalie Saldivar Admission Data Admit Date/Time: 01/15/23 12:45 Attending Provider: Natalie Saldivar Admit Provider: Riley Cavazos Primary Care Provider: Raúl Kaplan Other Providers: Shakeel Koroma ; Riley Cavazos Other Interventions: Discharge Summary Assessment (RN) Last Done: 01/16/23 11:38 Coding Level of Care Code 70289 INP/OBS DISCH >30 MIN Diagnoses Hemoptysis R04.2 Cystic fibrosis E84.9 GERD (gastroesophageal reflux disease) K21.9 Bronchiectasis J47.9 Time Spent (min) 35
[2023-01-16] MEDS ORDERED: [UNRECOGNIZED DRUG - OTHER] PO SCH (21:00)
== END 2023-01-16 13:00 | disposition home or self-care (01) ==
LOC: 3W 08:26 → ED 08:26 → SUATTDRO 12:45 → 3W 15:33